=== PATIENT | female | born 1965 | race Caucasian/White ===

== ENCOUNTER 2025-04-19 14:25 | Outpatient (CLI) | payer OTHER, SELFPAY | END 2025-04-19 14:26 | disposition home or self-care (01) | LOC: NFLDREF 04-24 15:49 | PROVIDERS: PCP Family Medicine; Referring Provider Family Medicine; Visit Provider Physician Assistant | DX: R35.0 Frequency of micturition (principal) | CPT/HCPCS: 87086 ==